=== PATIENT | male | born 1960 | race Caucasian/White ===

== ENCOUNTER → 2018-02-12 | Emergency (ER) | payer OTHER ==
--- NOTE | 2018-02-12 11:45 | EDPHY ---
H & P Source: Patient Exam Limitations: No limitations - Medical/Surgical History Hx Asthma: No Hx Chronic Respiratory Disease: No Hx Diabetes: No Hx Cardiac Disease: No Hx Renal Disease: No Hx Cirrhosis: No Hx Alcoholism: No Other PMH: The epilepsy Departure - Departure Referrals: Patient,NotPresent [Primary Care Provider] - As per Instructions
== END | disposition left against medical advice (07) ==
LOC: EDUNIT#
DX: Z53.21 Procedure and treatment not carried out due to patient leaving prior to being seen by health care provider (principal)